=== PATIENT | female | born 1985 | race Caucasian/White ===

== ENCOUNTER 2017-08-29 02:00 | Emergency (ER) | payer OTHER ==
[~2017-08-29] VITALS: Ht 160 cm; Wt 54.4 kg
[~2017-08-29 02:00] MED LIST: CYCLOBENZAPRINE10 MG ORAL; IBUPROFEN600 MG ORAL; NKM
[2017-08-29] MEDS ORDERED: Bacitracin Oint UD TOPIC ONE (02:15)
[2017-08-29] MEDS ORDERED: Lidocaine 1% MPF 10mg/ml 5ml INJ ONE (02:15)
[2017-08-29] MEDS ORDERED: Tetanus/Diptheria/Pertussis Vaccine 0.5ml Syr IM ONE (02:15)
--- NOTE | 2017-08-29 02:52 | Emergency Room Report ---
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 Pain and bleeding. Not want to suture, but continued to bleed. Pain 8/10, sharp. No numbness. Tetanus > 10 years. R handed No medical problems. No somatic complaints aside from finger. Not . 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[employer] - Born [facility], [place], [facility] Last Menstrual Period: 2 weeks ago Reviewed Nursing Documentation: PMH: Agreed, PSxH: Agreed Nursing Documentation-PMH Past Medical History: No Stated History Review of Systems Constitutional: Denies: fever Genitourinary: Reports: see HPI Musculoskeletal: Reports: see HPI Skin: Reports: see HPI Neurological: Reports: see HPI Hematologic/Lymphatic: Reports: see HPI Physical Exam Vital Signs Date Time Temp Pulse Resp B/P (MAP) Pulse Ox O2 Delivery O2 Flow Rate FiO2 08/29/17 02:04 97.8 68 18 132/71 98 Room Air 97.9 Sp02 EP Interpretation: reviewed, normal General Appearance: well appearing, no apparent distress Head: normocephalic, atraumatic Eyes: bilateral eye normal inspection, bilateral eye PERRL ENT: hearing grossly normal, normal voice Neck: full range of motion, supple Respiratory: no respiratory distress, speaking full sentences Musculoskeletal: gait/station normal, normal range of motion - tendons intact Neurologic: alert, motor strength/tone normal, sensory intact Psychiatric: mood/affect normal Skin: laceration - 2 cm lateral L little finger Procedures Laceration/Wound Repair Laceration/Wound Repair : Consent: Verbal Wound Location: upper extremity - L little finger Wound's Depth, Shape: superficial Wound Length (cm): 2 Wound Explored: clean Irrigated w/ Saline (ccs): 30 Anesthesia: 1% Lidocaine Volume Anesthetic (ccs): 1 - 1.5 Wound Debrided: none Wound Repaired With: sutures Suture Size/Type: 5:0 Layer Closure?: No Sterile Dressing Applied?: Yes Splint Applied?: No Patient Tolerated: Well Complications: None Medical Decision Making Diagnostic Impression: Primary Impression: Laceration of left little finger Qualified Codes: S61.217A - Laceration without foreign body of left little finger without damage to nail, initial encounter ER Course Patient with glass injury L little finger. Needs cleaning and sutures. Neurovasc intact. no FB at depth of wound. Tetanus indicated. Tylenol also given. sutured Tolerated well. Patient stable for outpatient observation and treatment. Last Vital Signs Date Time Temp Pulse Resp B/P (MAP) Pulse Ox O2 Delivery O2 Flow Rate FiO2 08/29/17 03:02 97.9 18 132/71 98 Room Air 97.9 08/29/17 02:04 68 Status: improved Disposition: HOME, SELF-CARE Condition: Improved Scripts Bacitracin (Bacitracin) 28.4 Gm Oint...g. 1 APPLIC TOPIC BID, #10 GM Prov: Kam Kerns M.D. 08/29/17 Referrals: NON PHYSICIAN (PCP) Kam Kerns M.D. Aug 29, 2017 02:52
[2017-08-29] MEDS ORDERED: BACITRACIN15 GM TOPIC (02:55)
[2017-08-29 03:02] VITALS: BP 132/71
== END 2017-08-29 03:02 | disposition home or self-care (01) ==
LOC: EMR 02:38
DX: S61.217A Laceration without foreign body of left little finger without damage to nail, initial encounter (principal); W25.XXXA Contact with sharp glass, initial encounter; Y92.511 Restaurant or cafe as the place of occurrence of the external cause; Y99.0 Civilian activity done for income or pay; Z23 Encounter for immunization
CPT/HCPCS: 90471; 90715; 99283

== ENCOUNTER 2017-09-07 00:22 | Emergency (ER) | payer OTHER ==
[~2017-09-07] VITALS: Ht 160 cm; Wt 55.3 kg
[~2017-09-07 00:22] MED LIST changes: +BACITRACIN15 GM TOPIC
[2017-09-07 01:03] VITALS: BP 117/73
--- NOTE | 2017-09-07 03:22 | Emergency Room Report ---
History of Present Illness General Chief Complaint: Wound Recheck/Suture Removal Source: Patient Present Illness HPI 32-year-old female here for suture removal that was placed 9 days ago no other complaints Allergies: Coded Allergies: No Known Allergies (Unverified , 01/04/16) Patient History Past Medical History: see triage record Past Surgical History: none Pertinent Family History: none Last Menstrual Period: Aug Reviewed Nursing Documentation: PMH: Agreed, PSxH: Agreed Nursing Documentation-PMH Past Medical History: No Stated History Review of Systems All Other Systems: negative except mentioned in HPI Physical Exam Vital Signs Date Time Temp Pulse Resp B/P (MAP) Pulse Ox O2 Delivery O2 Flow Rate FiO2 09/07/17 00:34 98.7 66 18 117/73 100 Room Air 98.8 General Appearance: normal inspection, well appearing, no apparent distress, alert, GCS 15, non-toxic Head: normocephalic, atraumatic Eyes: bilateral eye normal inspection, bilateral eye PERRL, bilateral eye EOMI ENT: normal ENT inspection, normal pharynx, normal voice, moist mucus membranes Cardiovascular #1: normal inspection, regular rate, rhythm, no edema, normal capillary refill Musculoskeletal: other - Left finger with laceration, no wound dehiscence, no redness, [address] Neurologic: normal inspection, alert, oriented x3, responsive, motor strength/ tone normal, sensory intact, normal gait, speech normal Procedures Additional Procedure Procedure Narrative Procedure: Suture Removal 3 sutures removed without difficulty Patient tolerated procedure well No complications Medical Decision Making Diagnostic Impression: Primary Impression: Encounter for removal of sutures ER Course 32-year-old female here for suture removal DDX: Suture removal Plan: Suture removal ER course: Patient has remained stable during ED stay. Disposition: Patient is to be discharged to home. Please note that this Emergency Department Report was dictated using [employer] technology software, occasionally this can lead to erroneous entry secondary to interpretation by the dictation equipment Last Vital Signs Date Time Temp Pulse Resp B/P (MAP) Pulse Ox O2 Delivery O2 Flow Rate FiO2 09/07/17 01:03 98.7 66 18 117/73 100 Room Air 98.8 Disposition: HOME, SELF-CARE Condition: Improved Referrals: NOT CHOSEN IPA/,REFERRING (PCP) Patient Instructions: Suture Removal, Care After Vanesa Diego M.D. Sep 07, 2017 03:22
== END 2017-09-07 01:04 | disposition home or self-care (01) ==
LOC: EMR 00:45
DX: S61.217D Laceration without foreign body of left little finger without damage to nail, subsequent encounter (principal); X58.XXXD Exposure to other specified factors, subsequent encounter; Z48.02 Encounter for removal of sutures
CPT/HCPCS: 99281

== ENCOUNTER 2018-02-18 15:15 | Emergency (ER) | payer SELFPAY ==
[~2018-02-18] VITALS: Ht 160 cm; Wt 53.5 kg
[2018-02-18 15:36] VITALS: BP 127/67
[2018-02-18] MEDS ORDERED: TYLENOL EXTRA500 MG ORAL (15:58)
--- NOTE | 2018-02-18 15:58 | Emergency Room Report ---
History of Present Illness General Chief Complaint: General Complaint Source: Patient Present Illness HPI 32-year-old female patient presents ER complaining of left small finger pain. Reports was previously in the ER months ago after she cut her hand on patient last. Reports that she did receive lacerations. Reports that laceration symptoms improved, denies open wound. Reports that she thinks she has a piece of glass in her hand from when she cut her hand on a glass for several months ago. Denies bleeding or other acute symptoms. Reports pain with movement. Denies acute injury with movement. Reports right hand dominant. reports did not follow-up with primary care provider after initial laceration injury. Allergies: Coded Allergies: No Known Allergies (Unverified , 01/04/16) Patient History Past Medical History: see triage record Last Menstrual Period: 02/15/18 Now: No Reviewed Nursing Documentation: PMH: Agreed; PSxH: Agreed Nursing Documentation-PMH Past Medical History: No Stated History Review of Systems All Other Systems: negative except mentioned in HPI Physical Exam Vital Signs Date Time Temp Pulse Resp B/P (MAP) Pulse Ox O2 Delivery O2 Flow Rate FiO2 02/18/18 15:30 98.0 67 16 127/67 97 Room Air 98.1 Sp02 EP Interpretation: reviewed, normal General Appearance: well appearing, no apparent distress, alert, GCS 15, non- toxic Head: normocephalic, atraumatic Eyes: bilateral eye normal inspection, bilateral eye PERRL ENT: hearing grossly normal, normal pharynx, no angioedema, normal voice, uvula midline, moist mucus membranes Neck: full range of motion Respiratory: lungs clear, normal breath sounds, no rhonchi, no respiratory distress, no accessory muscle use, no wheezing, speaking full sentences Cardiovascular #1: regular rate, rhythm, no edema Cardiovascular #2: 2+ radial (R), 2+ radial (L) Musculoskeletal: back normal, digits/nails normal, gait/station normal, normal range of motion, non-tender, other - no palpable mass Neurologic: alert, oriented x3, responsive, motor strength/tone normal, sensory intact Psychiatric: mood/affect normal Skin: no rash Medical Decision Making PA Attestation Dr. Wilkes is my supervising Physician whom patient management has been discussed with. Diagnostic Impression: Primary Impression: Finger pain ER Course Pt. presents to the ED c/o piece of glass in hand. Ddx considered but are not limited to foreign body, abrasion, laceration, cellulitis, abscess. Vital signs: are WNL, pt. is afebrile ER COURSE: patient requesting x-ray of hand. informed patient that piece of glass will not appear on x-ray of hand. laceration appears healing well, no signs of erythema or edema, no signs of flexor tenosynovitis. No palpable foreign body on physical exam. due to chronicity of symptoms did not believe it would be beneficial to attempt to remove possible foreign body from hand in the ER, follow up with hand specialist.Will provide patient with contact information for hand specialist, follow-up with PCP to get referral if needed. patient declined pain medication while in the ER. DISCHARGE: RX provided for Tylenol At this time pt is stable for d/c to home. Patient is resting comfortably, in no acute distress, nontoxic appearing, talking without difficulty. Patient to take medications as instructed Will provide with patient care instructions and any necessary prescriptions. Care plan and follow-up instructions provided. Patient instructed to follow-up with primary care provider in 3 - 5 days. Patient questions asked and answered. Patient reports understanding and agreement to treatment plan. ER precautions given. Patient instructed to return to ER immediately for any new or worsening of symptoms including but not limited to increasing SOB, persistent fever, chest pain, intractable vomiting. - Please note that this Emergency Department Report was dictated using [id number] technology software, occasionally this can lead to erroneous entry secondary to interpretation by the dictation equipment. Last Vital Signs Date Time Temp Pulse Resp B/P (MAP) Pulse Ox O2 Delivery O2 Flow Rate FiO2 02/18/18 15:36 98.1 86 16 127/67 97 Room Air 98.1 Disposition: HOME, SELF-CARE Condition: Stable Scripts Acetaminophen* (TYLENOL EXTRA STRENGTH*) 500 Mg Tablet 500 MG ORAL Q8H PRN for Prn Headache/Temp > 101, #30 TAB 0 Refills Prov: El Baez 02/18/18 Additional Instructions: Patient instructed to follow up with primary care provider and discuss further referral to hand specialist. Patient instructed on RICE method: rest, ice, compression, elevation. Patient instructed to WBAT. Take medications as directed. Patient questions asked and answered. ER precautions given, patient instructed to return to ER immediately for any new or worsening of symptoms. El Baez Feb 18, 2018 15:58
[2018-02-18 16:08] VITALS: BP 127/67
== END 2018-02-18 16:08 | disposition home or self-care (01) ==
LOC: EMR 15:45
DX: M79.645 Pain in left finger(s) (principal)
CPT/HCPCS: 99283